=== PATIENT | female | born 1995 | race Caucasian/White ===

== ENCOUNTER 2018-04-28 12:46 | Observation (INO) | payer OTHER ==
--- NOTE | 2018-04-28 15:00 | EDPHY ---
H & P Stated Complaint: Syncopal episode Time Seen by Provider: 04/28/18 14:50 - Personal History LMP (Females 10-55): 15-21 Days Ago - Medical/Surgical History Hx Asthma: No Hx Chronic Respiratory Disease: No Hx Diabetes: No Hx Cardiac Disease: No Hx Renal Disease: No Hx Cirrhosis: No Hx Alcoholism: No Other PMH: Denies - Social History Smoking Status: Never smoked Constitutional: Initial Vital Signs Temperature (C) 36.5 C 04/28/18 12:52 Heart Rate 90 04/28/18 12:52 Respiratory Rate 18 04/28/18 12:52 Blood Pressure 127/97 H 04/28/18 12:52 O2 Sat (%) 99 04/28/18 12:52 O2 Delivery Mode Room Air Allergies/Adverse Reactions: No Known Allergies Allergy (Unverified 04/28/18 12:55) Home Medications: Medication Instructions Recorded NK [No Known Home Meds] 04/28/18 Medical Decision Making ED Course/Re-evaluation: CHIEF COMPLAINT: Syncope and dental injury HISTORY OF PRESENT ILLNESS: Healthy 23-year-old female who is in [facility] from [facility]. She was sitting in a chair and she had just had her lunch. She had no prior sensation and woke up on the ground. It was unwitnessed there is no good sense of how long she was on the ground but she believes it was fairly brief. She chipped her left front incisor. She has never passed out before. She has no family history of syncope. She denies any eating disorder. She denies any dehydration. She denies any significant exercise today. She denies any medicines supplements or illicit drugs. The nurse speaks fluent Brazilian. REVIEW OF SYSTEMS: A comprehensive 10 system review of systems is otherwise negative aside from elements mentioned in the history of present illness and medical decision making. PHYSICAL EXAM: HR, BP, O2 Sat, RR. Temp noted General Appearance: Alert, well hydrated, appropriate, and non-toxic appearing. Head: Atraumatic without scalp tenderness or obvious injury Eyes: Pupils equal, round, reactive to light and accommodation, EOMI, no trauma , no injection. Ears: Clear bilaterally, no perforation, normal landmarks Nose: Atraumatic, no rhinorrhea, clear. Throat: There is no erythema or exudates, no lesions, normal tonsils, mucus membranes moist. Left front incisor fractured. Neck: Supple, nontender, no lymphadenopathy. Respiratory: No retractions, no distress, no wheezes, and no accessory muscle use. Lungs are clear to auscultation bilaterally. Cardiovascular: Regular rate and rhythm, no murmurs, rubs, or gallops. Good capillary refill all extremities. Gastrointestinal: Abdomen is soft, nontender, non-distended, no masses, no rebound, no guarding, no peritoneal signs. Musculoskeletal: Normal active ROM of all extremities, atraumatic. Neurological: Alert, appropriate, and interactive. The patient has non-focal cranial nerves, motor, sensory, and cerebellar exam. Skin: No rashes, good turgor, no nodules on palpation. Past medical history: Patient denies Past surgical history: Patient denies Family history: No significant family history including no significant syncope Social history: Single, employed, from [place], does not use tobacco drugs or alcohol DIAGNOSTICS/PROCEDURES/CRITICAL CARE TIME: The 12 lead EKG was interpreted by myself. See hard copy and/or "tracemaster" electronic copy for interpretation. Preliminary echocardiogram: negative DIFFERENTIAL DIAGNOSIS: The differential diagnosis for the patient's syncope included but was not limited to arrhythmia, dehydration, cardiogenic causes, neurogenic causes, vasovagal syncope, and blood loss. MEDICAL DECISION MAKING: This patient had a syncopal event. I do not believe this is vasovagal in nature. There appears to be no prodrome. She obviously had a significant enough event to fall directly on her face while sitting in a chair and shipping her left front tooth. I will before EKG, echocardiogram, laboratory studies. I have also consulted Cardiology Dr. Hyacinth Lynch. Labs unremarkable. Preliminary echo read is normal. 1553: Consulted with ANNAMARIE Uriostegui, cardiology. She agrees patient should be admitted for further cardiac evaluation. Spoke with hospitalist service. Dr. Mcgill accepts admission. - Data Points Laboratory Results: Laboratory Results 04/28/18 15:07 04/28/18 15:07 04/28/18 04/28/18 04/28/18 15:07 15:07 15:07 WBC RBC Hgb Hct MCV MCH MCHC RDW Plt Count MPV Neut % (Auto) Lymph % (Auto) [facility] % (Auto) Eos % (Auto) Baso % (Auto) Nucleat RBC Rel Count Absolute Neuts (auto) Absolute Lymphs (auto) Absolute Monos (auto) Absolute Eos (auto) Absolute Basos (auto) Absolute Nucleated RBC Immature Gran % Immature Gran # D-Dimer 0.31 ug/mLFEU ug/mLFEU (0.00-0.50) Sodium 139 mEq/L mEq/L (135-145) Potassium 3.9 mEq/L mEq/L (3.5-5.2) Chloride 106 mEq/L mEq/L (97-110) Carbon Dioxide 25 mEq/l mEq/l (22-31) Anion Gap 8 mEq/L mEq/L (6-14) BUN 15 mg/dL mg/dL (7-23) Creatinine 0.7 mg/dL mg/dL (0.6-1.0) Estimated GFR > 60 Glucose 85 mg/dL mg/dL (70-100) Calcium 9.9 mg/dL mg/dL (8.5-10.4) Magnesium 2.2 mg/dL mg/dL (1.6-2.3) Beta HCG, Qual NEGATIVE 04/28/18 15:07 WBC 8.49 10^3/uL 10^3/uL (3.80-9.50) RBC 4.88 10^6/uL 10^6/uL (4.18-5.33) Hgb 14.9 g/dL g/dL (12.6-16.3) Hct 43.7 % % (38.0-47.0) MCV 89.5 fL fL (81.5-99.8) MCH 30.5 pg pg (27.9-34.1) MCHC 34.1 g/dL g/dL (32.4-36.7) RDW 12.3 % % (11.5-15.2) Plt Count 180 10^3/uL 10^3/uL (150-400) MPV 11.1 fL fL (8.7-11.7) Neut % (Auto) 70.2 % % (39.3-74.2) Lymph % (Auto) 21.4 % % (15.0-45.0) [facility] % (Auto) 6.7 % % (4.5-13.0) Eos % (Auto) 0.8 % % (0.6-7.6) Baso % (Auto) 0.5 % % (0.3-1.7) Nucleat RBC Rel Count 0.0 % % (0.0-0.2) Absolute Neuts (auto) 5.96 10^3/uL 10^3/uL (1.70-6.50) Absolute Lymphs (auto) 1.82 10^3/uL 10^3/uL (1.00-3.00) Absolute Monos (auto) 0.57 10^3/uL 10^3/uL (0.30-0.80) Absolute Eos (auto) 0.07 10^3/uL 10^3/uL (0.03-0.40) Absolute Basos (auto) 0.04 10^3/uL 10^3/uL (0.02-0.10) Absolute Nucleated RBC 0.00 10^3/uL 10^3/uL (0-0.01) Immature Gran % 0.4 % % (0.0-1.1) Immature Gran # 0.03 10^3/uL 10^3/uL (0.00-0.10) D-Dimer Sodium Potassium Chloride Carbon Dioxide Anion Gap BUN Creatinine Estimated GFR Glucose Calcium Magnesium Beta HCG, Qual Departure - Departure Disposition: [facility] Inpatient Acute Clinical Impression: Syncope Qualifiers: Syncope type: unspecified Qualified Code(s): R55 - Syncope and collapse Tooth fracture Qualifiers: Encounter type: initial encounter Fracture type: closed Qualified Code(s): S02.5XXA - Fracture of tooth (traumatic), initial encounter for closed fracture Condition: Fair Instructions: Syncope (ED), Acute Dental Trauma (ED) Referrals: Estefani Uriostegui PA [Physician Rotary Drill Operator] - As per Instructions
[2018-04-28 15:21] LABS: PLATELET COUNT 180 10^3/uL (150-400)
[2018-04-28] MEDS ORDERED: ONDANSETRON DISINTEGRATING 4 MG TAB PO PRN (16:17)
[2018-04-28] MEDS ORDERED: ONDANSETRON 4 MG/2 ML VIAL IVP PRN (16:17)
[2018-04-28] MEDS ORDERED: ACETAMINOPHEN 325 MG TAB PO PRN (16:17)
--- NOTE | 2018-04-28 16:45 | ECHO ---
[email or web address] [address] [address] Main: [phone] Fax: Transthoracic Echocardiogram Name: LAUERN MEDEIROS MR#: [id number] Study Date: 04/28/2018 Study Time: 03:29 PM Date of : 1995 Age: 23 year(s) Height: 170.2 cm (67 in.) Weight: 60.78 kg (134 lb.) BSA: 1.71 m2 Gender: Female Examination: Echo Indication: Cardiac: syncope Image Quality: Adequate Contrast: Requested by: Glenn Walter BP: 120 mmHg/84 mmHg Heart Rate: Rhythm: Indication: Cardiac: syncope Procedure Staff Security Ambassador: Clari Montana [facility] Reading Physician: Gualberto Steiner MD Requesting Provider: Conclusions: Normal size left ventricle. No LV hypertrophy. EF is 58 %. No regional wall motion abnormality. Normal diastolic LV function. Normal appearing valvular structures. Trivial tricuspid valve regurgitation. Pulmonary artery pressure is not obtained due to inadequate TR jet. No pericardial effusion. No prior study for comparison. Measurements: Chambers Valvular Assessment AV/MV Valvular Assessment TV/PV Normal Normal Normal Name Value Range Name Value Range Name Value Range Ao Yumiko (MM): 2.7 cm (2.2 cm-3.7 AV Vmax: 0.97 m/s (1 m/s-1.7 PV Vmax: 0.83 m/s (0.6 m/s-0.9 cm) m/s) m/s) IVSd (2D): 0.7 cm (0.6 cm-1.1 AV maxP mmHg ( - ) PV PGmax: 3 mmHg ( - ) cm) LVOT Vmax: 0.71 m/s (0.7 m/s-1.1 LVDd (2D): 3.7 cm (3.9 cm-5.3 m/s) cm) JOSE RAFAEL (Vmax): 2.1 cm2 ( - ) LVDs (2D): 2.6 cm (2.1 cm-4 MV E Vmax: 0.62 m/s ( - ) cm) MV A Vmax: 0.36 m/s ( - ) LVPWd (2D): 0.8 cm ( - ) MV E/A: 1.72 ( - ) LVOTd 1.9 cm 1.9 cm mm LVEF (BP): 58 % (>=55 %) RVDd(2D): 3.0 cm (1.9 cm-3.8 cmmm) Continued Measurements: Patient: LAUREN MEDEIROS Study Date: 04/28/2018 Page 1 of 2 03:29 PM Chambers Valvular Assessment AV/MV Name Value Name Value LADs: 2.4 cm MV DecTime: 243 m/s LADs Lon.2 cm MV E/E' Septal: 5.10 LA Area: 11.1 cm2 MV E/E' Lateral: 3.90 LA Volume: 23 ml LA Volume Index: 13.5 ml/m2 TAPSE: 1.9 cm RA Area: 11.0 cm2 Additional Vessels Name Value Ao Ascendin.6 cm Findings: Left Ventricle: Normal size left ventricle. No LV hypertrophy. Normal global systolic LV function. EF is 58 %. No regional wall motion abnormality. Normal diastolic LV function. Right Ventricle: Normal size right ventricle. Normal RV function. Left Atrium: The left atrium is normal in size. Right Atrium: The right atrium is normal in size. Mitral Valve: The mitral valve is normal in appearance and function. There is no significant mitral valve regurgitation. No mitral stenosis is present. Aortic Valve: The aortic valve is tri-leaflet. There is no aortic valve regurgitation. No aortic valve stenosis is present. Tricuspid Valve: The tricuspid valve is normal in appearance and function. Trivial tricuspid valve regurgitation. Pulmonary artery pressure is not obtained due to inadequate TR jet. Pulmonic Valve: The pulmonic valve is normal in appearance and function. There is no pulmonic regurgitation seen. Aorta: The aorta is normal. Normal size aortic root measuring 2.7 cm. Normal size ascending aorta measuring 2.6 cm. IVC: Normal size and course of the IVC. Pericardium: No pericardial effusion. (No Signature Object) Patient: LAUREN MEDEIROS Study Date: 04/28/2018 Page 2 of 2 03:29 PM [id number]
--- NOTE | 2018-04-28 17:15 | PDGENHP ---
<Amanda Walker - Last Filed: 04/28/18 17:26> History and Physical - Chief Complaint Syncopal event with injury - History of Present Illness This is a 23 y/o female with no past medical history presenting to the emergency room after experiencing a syncopal episode with injury. 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 No preceding indicators to suggest syncopal episode. Denies lightheadedness, palpitations, chest pains, nausea. She woke up on the ground and isn't sure how long she lost consciousness. She told the father to check on the child because she needed to seek help. In the process of losing consciousness, she must've hit her face onto either the table, chair or floor because she chipped her left front incisor. She endorses headache 5/10 but has had same intensity of headaches in the past and does not want any medications. No cervical pain, no vision changes. No pain noted anywhere else. Non-toxic in appearance. She is being admitted for observation and monitoring. Past Medical History: Negative Past Surgical History: At age 5 ("something to do with my teeth") and age 8 ( she can't remember but it had to do something with her mouth) Family History: Father with heart arrhythmias Social: Denies tobacco or illicit drug use. Drinks socially when she goes to the clubs 2-3x/week. History Information - Allergies/Home Medication List Allergies/Adverse Reactions: No Known Allergies Allergy (Unverified 04/28/18 12:55) Home Medications: NK [No Known Home Meds] 04/28/18 [Last Taken Unknown] I have personally reviewed and updated: family history, medical history, social history, surgical history Past Medical History: See HPI list - Surgical History Additional surgical history: See HPI list - Family History Additional family history: See HPI list - Social History Smoking Status: Never smoked Alcohol Use: Occasionally (2-3 drinks/week) Drug Use: None Review of Systems Review of Systems: ROS: 10pt was reviewed & negative except for what was stated in HPI & below Constitutional: Reports: recent injury EENMT: Reports: no symptoms Cardiac: Reports: no symptoms Respiratory: Reports: no symptoms Gastrointestinal: Reports: no symptoms Genitourinary: Reports: no symptoms Muscolosketal: Reports: no symptoms Skin: Reports: no symptoms Neurological: Reports: headache Hematologic/Lymphatic: Reports: no symptoms Immunologic/Allergy: Reports: no symptoms Physical Exam Physical Exam: Lab data and imaging were reviewed; all unremarkable. Temp Pulse Resp BP Pulse Ox 36.5 C 68 18 132/84 H 95 04/28/18 12:52 04/28/18 14:00 04/28/18 14:00 04/28/18 14:00 04/28/18 14:00 Constitutional: no apparent distress, appears nourished, not in pain Eyes: PERRL, anicteric sclera, EOMI Ears, Nose, Mouth, Throat: moist mucous membranes, hearing normal, ears appear normal, no oral mucosal ulcers, other (Left incisor chipped) Cardiovascular: regular rate and rhythym, no murmur, rub, or gallop, No edema Peripheral Pulses: 2+: dorsalis-pedis (R) (Radial 2+), dorsalis-pedis (L) ( Radial 2+) Respiratory: no respiratory distress, no rales or rhonchi, clear to auscultation Gastrointestinal: normoactive bowel sounds, soft, non-tender abdomen, no palpable masses Genitourinary: no bladder fullness, no bladder tenderness Skin: warm, normal color, no rashes or abrasions, no fluctuance, no induration, No mottled Musculoskeletal: full muscle strength, no muscle tenderness, normal joint ROM, no joint effusions Neurologic: AAOx3, sensation intact bilaterally, CN II-XII Intact Psychiatric: interacting appropriately, not anxious, not encephalopathic, thought process linear Lymph, Heme, Immunologic: no cervical LAD, no supraclavicular LAD Lab Data & Imaging Review 04/28/18 15:07 04/28/18 15:07 WBC 8.49 10^3/uL (3.80-9.50) 04/28/18 15:07 RBC 4.88 10^6/uL (4.18-5.33) 04/28/18 15:07 Hgb 14.9 g/dL (12.6-16.3) 04/28/18 15:07 Hct 43.7 % (38.0-47.0) 04/28/18 15:07 MCV 89.5 fL (81.5-99.8) 04/28/18 15:07 MCH 30.5 pg (27.9-34.1) 04/28/18 15:07 MCHC 34.1 g/dL (32.4-36.7) 04/28/18 15:07 RDW 12.3 % (11.5-15.2) 04/28/18 15:07 Plt Count 180 10^3/uL (150-400) 04/28/18 15:07 MPV 11.1 fL (8.7-11.7) 04/28/18 15:07 Neut % (Auto) 70.2 % (39.3-74.2) 04/28/18 15:07 Lymph % (Auto) 21.4 % (15.0-45.0) 04/28/18 15:07 Izard % (Auto) 6.7 % (4.5-13.0) 04/28/18 15:07 Eos % (Auto) 0.8 % (0.6-7.6) 04/28/18 15:07 Baso % (Auto) 0.5 % (0.3-1.7) 04/28/18 15:07 Nucleat RBC Rel Count 0.0 % (0.0-0.2) 04/28/18 15:07 Absolute Neuts (auto) 5.96 10^3/uL (1.70-6.50) 04/28/18 15:07 Absolute Lymphs (auto) 1.82 10^3/uL (1.00-3.00) 04/28/18 15:07 Absolute Monos (auto) 0.57 10^3/uL (0.30-0.80) 04/28/18 15:07 Absolute Eos (auto) 0.07 10^3/uL (0.03-0.40) 04/28/18 15:07 Absolute Basos (auto) 0.04 10^3/uL (0.02-0.10) 04/28/18 15:07 Absolute Nucleated RBC 0.00 10^3/uL (0-0.01) 04/28/18 15:07 Immature Gran % 0.4 % (0.0-1.1) 04/28/18 15:07 Immature Gran # 0.03 10^3/uL (0.00-0.10) 04/28/18 15:07 D-Dimer 0.31 ug/mLFEU (0.00-0.50) 04/28/18 15:07 Sodium 139 mEq/L (135-145) 04/28/18 15:07 Potassium 3.9 mEq/L (3.5-5.2) 04/28/18 15:07 Chloride 106 mEq/L (97-110) 04/28/18 15:07 Carbon Dioxide 25 mEq/l (22-31) 04/28/18 15:07 Anion Gap 8 mEq/L (6-14) 04/28/18 15:07 BUN 15 mg/dL (7-23) 04/28/18 15:07 Creatinine 0.7 mg/dL (0.6-1.0) 04/28/18 15:07 Estimated GFR > 60 04/28/18 15:07 Glucose 85 mg/dL (70-100) 04/28/18 15:07 Calcium 9.9 mg/dL (8.5-10.4) 04/28/18 15:07 Magnesium 2.2 mg/dL (1.6-2.3) 04/28/18 15:07 POC Troponin I 0.00 ng/mL (0.00-0.08) 04/28/18 16:00 Beta HCG, Qual NEGATIVE 04/28/18 15:07 Assessment & Plan Plan: 23 y/o with syncopal episode sustained a tooth fracture. She has never had a syncopal episode before. No preceding indicators to suggest incoming of LOC. 1. Syncopal episode with unknown etiology: all lab work and imaging thus far have been unremarkable. She was asymptomatic leading up to event. Hemodynamically stable. Echo today with results of: normal size LV, no LV hypertrophy, EF 58%, no regional wall abnormality, normal diastolic LV function , normal appearing valvular structures, trivial TR, no pericardial effusion. -Consulted cards for evaluation. ANNAMARIE Harrison to evaluate. -Cont tele monitoring -Orthostatic vitals QS 2. Tooth fracture: per pt, painful however does not want any medications right now. She will need to f/u outpatient for repair. 3. Headache: rates 5/10 which is tolerable to her and does not want any medications right now. She will request medications should the pain increase and become intolerable. Suggested ice pack for comfort. Diet: Regular VTE ppx: SCDs Code: Full Dispo: Admit to obs <Penelope Mcigll - Last Filed: 04/28/18 19:27> History and Physical - History of Present Illness Review of Systems Review of Systems: Physical Exam Physical Exam: Temp Pulse Resp BP Pulse Ox 36.4 C 85 16 122/85 H 93 04/28/18 18:29 04/28/18 18:29 04/28/18 18:29 04/28/18 18:29 04/28/18 18:29 Lab Data & Imaging Review 04/28/18 15:07 04/28/18 15:07 WBC 8.49 10^3/uL (3.80-9.50) 04/28/18 15:07 RBC 4.88 10^6/uL (4.18-5.33) 04/28/18 15:07 Hgb 14.9 g/dL (12.6-16.3) 04/28/18 15:07 Hct 43.7 % (38.0-47.0) 04/28/18 15:07 MCV 89.5 fL (81.5-99.8) 04/28/18 15:07 MCH 30.5 pg (27.9-34.1) 04/28/18 15:07 MCHC 34.1 g/dL (32.4-36.7) 04/28/18 15:07 RDW 12.3 % (11.5-15.2) 04/28/18 15:07 Plt Count 180 10^3/uL (150-400) 04/28/18 15:07 MPV 11.1 fL (8.7-11.7) 04/28/18 15:07 Neut % (Auto) 70.2 % (39.3-74.2) 04/28/18 15:07 Lymph % (Auto) 21.4 % (15.0-45.0) 04/28/18 15:07 Izard % (Auto) 6.7 % (4.5-13.0) 04/28/18 15:07 Eos % (Auto) 0.8 % (0.6-7.6) 04/28/18 15:07 Baso % (Auto) 0.5 % (0.3-1.7) 04/28/18 15:07 Nucleat RBC Rel Count 0.0 % (0.0-0.2) 04/28/18 15:07 Absolute Neuts (auto) 5.96 10^3/uL (1.70-6.50) 04/28/18 15:07 Absolute Lymphs (auto) 1.82 10^3/uL (1.00-3.00) 04/28/18 15:07 Absolute Monos (auto) 0.57 10^3/uL (0.30-0.80) 04/28/18 15:07 Absolute Eos (auto) 0.07 10^3/uL (0.03-0.40) 04/28/18 15:07 Absolute Basos (auto) 0.04 10^3/uL (0.02-0.10) 04/28/18 15:07 Absolute Nucleated RBC 0.00 10^3/uL (0-0.01) 04/28/18 15:07 Immature Gran % 0.4 % (0.0-1.1) 04/28/18 15:07 Immature Gran # 0.03 10^3/uL (0.00-0.10) 04/28/18 15:07 D-Dimer 0.31 ug/mLFEU (0.00-0.50) 04/28/18 15:07 Sodium 139 mEq/L (135-145) 04/28/18 15:07 Potassium 3.9 mEq/L (3.5-5.2) 04/28/18 15:07 Chloride 106 mEq/L (97-110) 04/28/18 15:07 Carbon Dioxide 25 mEq/l (22-31) 04/28/18 15:07 Anion Gap 8 mEq/L (6-14) 04/28/18 15:07 BUN 15 mg/dL (7-23) 04/28/18 15:07 Creatinine 0.7 mg/dL (0.6-1.0) 04/28/18 15:07 Estimated GFR > 60 04/28/18 15:07 Glucose 85 mg/dL (70-100) 04/28/18 15:07 Calcium 9.9 mg/dL (8.5-10.4) 04/28/18 15:07 Magnesium 2.2 mg/dL (1.6-2.3) 04/28/18 15:07 POC Troponin I 0.00 ng/mL (0.00-0.08) 04/28/18 16:00 Beta HCG, Qual NEGATIVE 04/28/18 15:07 Assessment & Plan Assessment: Syncope (Acute) Tooth fracture (Acute) Plan: Patient seen independently and care plan reviewed with ALIYA Walker, agree with her assessment and plan as outlined above. Please see separate note for further details.
--- NOTE | 2018-04-28 17:57 | CPEKG ---
Test Reason : OPEN Blood Pressure : / mmHG Vent. Rate : 086 BPM Atrial Rate : 086 BPM P-R Int : 140 ms QRS Dur : 082 ms QT Int : 368 ms P-R-T Axes : 062 057 054 degrees QTc Int : 440 ms Sinus rhythm Confirmed by Glenn Walter ([id number]) on 04/28/2018 5:57:06 PM Referred By: Glenn Walter Confirmed By:Glenn Walter
--- NOTE | 2018-04-28 19:32 | HOSPPROG ---
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 No prior similar episodes in the past. No preceding illness. Work up thus far including labs, ecg, echo are all unremarkable. Discussed with Dr. Walter who in consultation with cardiology felt that patient should be monitored overnight on tele with further work up including potentially discharge with heart monitor to be determined in am. # tooth injury: due to syncopal event, will need to f/u with dentist after discharge # observation status Patient new to my care. Care plan reviewed with ER doctor as well as ALIYA Walker, please see her separate documentation for further details. Objective: Vital Signs Temp Pulse Resp BP Pulse Ox 36.4 C 85 16 122/85 H 93 04/28/18 18:29 04/28/18 18:29 04/28/18 18:29 04/28/18 18:29 04/28/18 18:29 ICD10 Worksheet Patient Problems: Problems Problem Status Onset Syncope Acute Tooth fracture Acute
--- NOTE | 2018-04-29 10:26 | GCON ---
[f rep st] CONSULTATION DATE OF CONSULTATION: 04/29/2018 CHIEF COMPLAINT: Syncope. HISTORY OF PRESENT ILLNESS: We were asked by Dr. Mcgill to visit with Jesica. The patient is a 23-year-old female with no known medical or cardiovascular history. She takes no medications. 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 Yesterday she was in her usual state of health without any change in diet. No caffeine intake. No r ecent alcohol ingestion. She had been eating lunch, when she got up to go check on the baby. She ca me back and sat down and the next thing she knows she was on the floor having chipped her front tooth . She denies any prodrome of palpitations or presyncope. No nausea or vomiting. No postictal state or incontinence. No tongue biting. Because of the serious nature of her syncope, which involved in jury, she was admitted for observation. This morning, she reports feeling back to normal. No lightheadedness or palpitations. She denies an y previous history of syncope or cardiac symptoms. She denies vjeh-kke-kwgzbzf medications. Her fat her has some sort of arrhythmia which she reports is fairly benign. He does not have a pacemaker or defibrillator. She denies a family history of sudden cardiac . Last night, her orthostatic vital signs were measured and, notably, her blood pressure went from 109 supine to 78 standing systolic. REVIEW OF SYSTEMS: A full 10-point review of systems was performed and is negative, except that whic h is outlined in History of Present Illness. ALLERGIES: No known drug allergies. PAST MEDICAL HISTORY: None. PAST SURGICAL HISTORY: The patient had some sort of mouth surgery or issue with her mouth when she w as a young child. She does not know details. MEDICATIONS: Outpatient medications none. She denies supplements. SOCIAL HISTORY: The patient does not use caffeine. Social alcohol, but none in the past day. She d enies illicit drugs. No tobacco. FAMILY HISTORY: Notable for father with some sort of benign-sounding arrhythmia. Otherwise, negativ e for sudden cardiac . PHYSICAL EXAM: VITAL SIGNS: Blood pressure is 109/64. Orthostatic vitals as detailed above. Heart rate 98, oxygen saturation 93% on room air. She is afebrile. GENERAL: Well-appearing, young femal e, in no acute distress. HEENT: She does have a fracture of her left incisor. Otherwise normocepha lic, atraumatic. Sclerae are nonicteric. Mucous membranes are moist. CARDIOVASCULAR: JVP is less than 10. Carotids equal and 2+ without bruit. Regular rate and rhythm without murmur, rub, or carlos p. LUNGS: Clear to auscultation without wheeze, rhonchi, or rales. ABDOMEN: Soft, nontender, nond istended, without bruits, masses, or hepatosplenomegaly. EXTREMITIES: Warm and well perfused withou t cyanosis, clubbing, or edema. Intact pulses. NEURO: Alert and oriented x3 without gross focal ne urological deficits. Appropriate mood and affect. LABORATORY DATA: CBC is normal. D-dimer negative. Basic metabolic panel and magnesium are normal. Troponin zero. Beta hCG negative. EKG reviewed by me shows sinus rhythm without evidence of pre-ex citation. Normal QT interval. No ischemia. Echocardiogram reviewed by me. Normal LV size and systolic function without any significant valvular disease. No pericardial effusion. Telemetry overnight, sinus rhythm. ASSESSMENT AND PLAN: A 23-year-old female with her first episode of syncope. Given the sudden onset without prodrome and consequent injury, this is somewhat concerning for a cardiac etiology, although her orthostatic vital signs are also quite impressive. It may have just been orthostasis as she had just gotten up and sat back down again. 1. Syncope: Possibly orthostasis. She was insurance counselor to maintain hydration and be careful with change of positions. I would not add Florinef or Midodrine at this time as this is her first episode. She has not had any arrhythmias on tele. Heart is structurally normal based on echocardiogram. I would recommend 2 week outpatient ambulatory ZIO monitor and then follow up with us at [facility]. Thi s does not sound like seizure, but if has recurrence, could consider neurological evaluation. I have ordered a U tox as well. We will check TSH. Thank you for allowing us to participate in Jesica's care. We will follow outpatient as detailed ab adan. /[id number]/MODL
--- NOTE | 2018-04-29 12:07 | ASMTDCNOTE ---
Case Management Discharge Discharge Order Complete? Answers: Yes Patient to Obtain Answers: Independently Medications Discharge Comments Notes: 04/29/2018 Case Management Note Pt admitted after episode of syncope. Will be discharged with [facility] monitor and followup with [facility]. There are no case management d/c needs identified. Date Signed: 04/29/2018 12:06 PM Electronically Signed By:Melva Field RN
--- NOTE | 2018-04-29 12:08 | ASDISCHSUM ---
Discharge Information Plan Status:Home with No Needs Medically Cleared to Leave:04/28/2018 Discharge Date:04/28/2018 CM D/C Disposition:Home, Routine, Self-Care ADT D/C Disposition:Home, Routine, Self-Care Projected Discharge Date:04/28/2018 Transportation at D/C: Discharge Delay Reason: Follow-Up Date:04/28/2018 Discharge Slot: Final Diagnosis: Placement Information Patient Contact Information Contact Name:OZ Relationship:Employer Address:[address] [employer] [employer] Work Phone: [facility] Phone: State/Zip Code:[place] [address] Email: Financial Information Financial Class:HMO and PPO Plans Primary Plan Desc:[facility] Primary Plan Number:[id number] Secondary Plan Desc: Secondary Plan Number: Assessment Information LACE LACE Length of stay for Answers: Less than 1 day current admission Acuity / Level of Answers: No Care: Did the patient have an inpatient admission? # of Emergency department Answers: 1-2 visits in the last 6 months Score: 1 Date Signed: 04/29/2018 12:07 PM Electronically Signed By:Melva Field RN Case Management Discharge Plan Note Case Management Discharge Discharge Order Complete? Answers: Yes Patient to Obtain Answers: Independently Medications Discharge Comments Notes: 04/29/2018 Case Management Note Pt admitted after episode of syncope. Will be discharged with O monitor and followup with [facility]. There are no case management d/c needs identified. Date Signed: 04/29/2018 12:06 PM Electronically Signed By:Melva Field RN Intervention Information
[2018-04-29 12:31] VITALS: BP 118/62
--- NOTE | 2018-04-29 13:13 | GDS ---
[f rep st] DISCHARGE SUMMARY DISCHARGE DIAGNOSIS: Syncope. CONSULTS: Cardiology. ECHOCARDIOGRAM: Normal size LV function and LV size and systolic function. No significant valvular heart disease. No pericardial effusion. HISTORY OF PRESENT ILLNESS: A 23-year-old female with no medical or cardiovascular history, presented with syncope. 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 Yesterday she was in her usual state of health. She went to go check on the baby. She sat down and the next thing she knew she was on the floor and had chipped her left front tooth. She denies any prodromal chest pain, palpitations, or loss of consciousness. This morning she feels like herself. No lightheadedness or palpitations. She denies any previous symptoms. No illicits or zswn-trs-iyrqndo medications. HOSPITAL COURSE BY PROBLEM: 1. Syncope: likely orthostasis. No evidence of arrhythmia on telemetry and normal echo. Discharged with a [employer] monitor and will follow up with [facility] in 2 weeks. Urine tox was normal and a TSH will be followed up as an outpatient. PHYSICAL EXAMINATION: VITAL SIGNS: Today, temperature 36.7, blood pressure is 118/60, heart rate in the 80s, respirations 16, 90% on room air. GENERAL: Well appearing. No acute distress. HEENT: PERRLA. Moist mucous membranes. CV: Regular rate and rhythm. No murmurs, gallops, or rubs. LUNGS: Clear. ABDOMEN: Soft, nontender, nondistended. Positive bowel sounds. : _. MUSCULOSKELETAL: 5/5 upper and lower extremity strength. NEURO: 2 through 12 intact. PSYCH: Alert and oriented x3. TIME SPENT ON DISCHARGE: Greater than 30 minutes at bedside evaluating the patient, discussing case with Dr. Lynch. DISPOSITION: Patient is stable for discharge home with [employer] heart monitor. FOLLOWUP: With [facility] 2 weeks. /[id number]/MODL MTDD
== END 2018-04-29 12:54 | disposition home or self-care (01) ==
LOC: F2W 18:08
PROVIDERS: ADMIT Internal Medicine; ATTEND Internal Medicine
DX: R55 Syncope and collapse (principal); S02.5XXA Fracture of tooth (traumatic), initial encounter for closed fracture; W19.XXXA Unspecified fall, initial encounter
CPT/HCPCS: 93005; 93306; G0378; 80307; 84484-ER; G0480